=== PATIENT | male | born 1970 | race Caucasian/White ===

== ENCOUNTER 2023-11-14 17:49 | Outpatient (RCR) | payer BC, SELFPAY | END 2023-11-14 23:59 | disposition home or self-care (01) | LOC: CRHB 17:49 | PROVIDERS: ATTENDING PHYSICIAN Internal Medicine Cardiovascular Disease | DX: I25.10 Atherosclerotic heart disease of native coronary artery without angina pectoris (principal); Z95.5 Presence of coronary angioplasty implant and graft; I25.2 Old myocardial infarction | CPT/HCPCS: 93798 ==

== ENCOUNTER 2023-12-04 07:44 | Day surgery (SDC) | payer BC, SELFPAY ==
[2023-12-04] VITALS (11 sets, daily range): BP systolic 108–154; BP diastolic 62–124; BMI 32.4
[2023-12-04 08:07] LABS: Hematocrit 40.6 % (39.0-52.0); Hemoglobin 14.4 g/dL (13.0-18.0); Mean Corp Hgb Conc. 35.5 g/dL (33.0-37.0); Mean Corpuscular Hgb 31.6 pg (27.0-31.0); Mean Platelet Volume 9.8 fL (7.4-10.4); Platelet Count 241 10^3/uL (130-400); Red Blood Cell Count 4.56 10^6/uL (4.70-6.10); Red Cell Dist. Width 12.4 % (11.5-14.5); White Blood Cell Count 10.3 10^3/uL (4.8-10.8)
[2023-12-04 08:21] LABS: Blood Urea Nitrogen 11 mg/dl (9-20); Calcium 9.8 mg/dl (8.4-10.2); Carbon Dioxide 31 mmol/L (22-30); Chloride 102 mmol/L (98-107); Estimated Creatinine Clearance 109 ml/min; Glucose 110 mg/dl (70-99); Potassium 4.1 mmol/L (3.5-5.1); Sodium 140 mmol/L (135-145); eGFR > 60.00
[2023-12-04] MEDS: NSS 311 ML IV (08:36)
[2023-12-04 08:39] LABS: Glucose - Point of Care 106 mg/dl (70-99)
[2023-12-04 09:29] LABS: ACT-LR - POC 322 Seconds (116-155)
--- NOTE | 2023-12-04 10:10 | ITS.CL.CATH ---
Addendum entered and electronically signed by Perry Martinez MD 12/17/23 11:58:
Correction: Under flow wire assessment it should read after 0.92, 0.92, 0.92 'These are all consistent with non flow limiting disease'
Original Note:
Senior Lead Software Engineer - Catheterization
Cardiac Catheterization
Procedure Report:
CARDIAC CATHETERIZATION REPORT
Date of Procedure: 12/04/2023
Referring: Perry Martinez MD
Indication: Inferior STEMI (August 2023) with multivessel CAD now for possible additional revascularization following abnormal stress test
HEMODYNAMIC DATA
AO: 122/77
LV: Not done
LEFT VENTRICULOGRAPHY: Not performed
CORONARY ANGIOGRAPHY
Dominance: Right
Left Main: Normal
LAD: There is ectasia of the proximal and mid LAD. There is an eccentric 40-50% proximal to mid LAD stenosis. The distal LAD is mildly diseased. There is a 40-50% proximal stenosis in the major diagonal branch.
Circumflex: The circumflex gives rise to a small to medium sized OM1, large bifurcating OM 2, and terminates with a relatively small OM 3. There is 30% mid circumflex stenosis proximal to the takeoff of OM 2. OM 2 has a focal 70% proximal lesion.
OM 2 bifurcates in the midportion and there is 4050% stenosis in the larger daughter branch distal to the bifurcation. There is mild disease in OM 3.
RCA: The RCA is a large dominant ectatic vessel. There is 30% distal RCA stenosis past the crux. There is a widely patent stent in the distal RCA just proximal to the takeoff of the PDA. The PDA is subtotally occluded in the midportion and is
similar in appearance to the prior study from August 2023. The stent placed in the distal RPL in August 2023 is widely patent. There is 30% stenosis just proximal to its origin.
FloWire assessment: The circumflex and LAD were evaluated with FloWire. Heparin was used for anticoagulation. An EBU 3.75 guide catheter was used. A Md7 flow wire was first advanced into OM to cross the 70% OM2 lesion. iFR measurements were
1.0 and 1.0 consistent with no flow limitation whatsoever. The wire was carefully withdrawn to show that normalization was maintained. We then redirected the wire into the LAD. It was technically challenging to get the wire past the eccentric
proximal 40-50% LAD stenosis. For safety, a BMW wire was passed into the distal LAD. We then successfully passed the [place] flow wire into the mid LAD distal to the major diagonal branch takeoff. iFR measurements were 0.92, 0.92 and 0.91. These
are all consistent with flow-limiting disease. Again, we verified the IFR to be 1.0 on pullback at the tip of the guide catheter.
Closure Device: None-the procedure was performed via the right radial artery. The Kevin's test was normal prior to the procedure.
Radiation (mGy): 662
DAP (cm2.Gy): 6.0
Fluoroscopy time: 6.7 minutes
CONCLUSIONS
1: Patent RCA stents (August 2023) with significant but nonobstructive residual CAD as described
2: Continue medical therapy/aggressive risk factor modification efforts
Copy to: Perry Martinez MD, James Parekh,
Perry Martinez MD, [facility], [facility]
== END 2023-12-04 12:45 | disposition home or self-care (01) ==
LOC: CATH 07:44
PROVIDERS: ATTENDING PHYSICIAN Internal Medicine Cardiovascular Disease; FAMILY PHYSICIAN Internal Medicine
DX: I25.10 Atherosclerotic heart disease of native coronary artery without angina pectoris (principal); Z95.5 Presence of coronary angioplasty implant and graft; R07.89 Other chest pain; I10 Essential (primary) hypertension; E78.5 Hyperlipidemia, unspecified; K21.9 Gastro-esophageal reflux disease without esophagitis; F17.210 Nicotine dependence, cigarettes, uncomplicated; Z79.82 Long term (current) use of aspirin; Z79.84 Long term (current) use of oral hypoglycemic drugs
CPT/HCPCS: C1769; C1894; 80048; 82962; 85027; 85347; 93454; 93571; 93572; C1760; Q9967

== ENCOUNTER 2023-12-12 17:44 | Outpatient (RCR) | payer BC, SELFPAY | END 2023-12-12 23:59 | disposition home or self-care (01) | LOC: CRHB 17:44 | PROVIDERS: ATTENDING PHYSICIAN Internal Medicine Cardiovascular Disease | DX: I25.10 Atherosclerotic heart disease of native coronary artery without angina pectoris (principal); Z95.5 Presence of coronary angioplasty implant and graft; I25.2 Old myocardial infarction | CPT/HCPCS: 93798 ==

== ENCOUNTER 2024-01-11 17:30 | Outpatient (RCR) | payer BC, SELFPAY | END 2024-01-11 23:59 | disposition home or self-care (01) | LOC: CRHB 17:30 | PROVIDERS: ATTENDING PHYSICIAN Internal Medicine Cardiovascular Disease | DX: Z95.5 Presence of coronary angioplasty implant and graft (principal); I25.10 Atherosclerotic heart disease of native coronary artery without angina pectoris | CPT/HCPCS: 93797; 93798 ==

== ENCOUNTER 2024-01-14 17:30 | Outpatient (RCR) | payer BC, SELFPAY | END 2024-01-14 23:59 | disposition home or self-care (01) | LOC: CRHB 17:30 | PROVIDERS: ATTENDING PHYSICIAN Internal Medicine Cardiovascular Disease; FAMILY PHYSICIAN Internal Medicine | DX: Z95.5 Presence of coronary angioplasty implant and graft (principal); I25.10 Atherosclerotic heart disease of native coronary artery without angina pectoris; I21.01 ST elevation (STEMI) myocardial infarction involving left main coronary artery | CPT/HCPCS: 93797; 93798 ==

== ENCOUNTER → 2024-03-17 14:10 | Outpatient (REF) | payer BC, SELFPAY | LOC: HWRAD 14:10 | PROVIDERS: ATTENDING PHYSICIAN Internal Medicine | DX: F17.210 Nicotine dependence, cigarettes, uncomplicated (principal) | CPT/HCPCS: 71271 ==